=== PATIENT | female | born 2000 | race Caucasian/White ===

== ENCOUNTER 2022-11-01 20:23 | Emergency (ER) | payer OTHER ==
[~2022-11-01] VITALS: Ht 162.6 cm; Wt 47.2 kg
[2022-11-01 20:28] VITALS: BP_SYST 131; PULSE 63; RESP 18; TEMP 97.5; O2SAT 100
[2022-11-01] MEDS ORDERED: KETOROLAC TROMETHAMINE 60 MG/2 ML VIAL IM ONE (23:00)
[2022-11-01] MEDS ORDERED: ACETAMINOPHEN 500 MG TABLET PO ONE (23:00)
[2022-11-02] MEDS ORDERED: CYCL10TA24 PO (00:01)
[2022-11-02] MEDS ORDERED: IBUP-1969 PO (00:01)
[2022-11-02] MEDS ORDERED: ACET-2634 PO (00:01)
[2022-11-02 00:23] VITALS: BP_SYST 125; PULSE 68; RESP 18; TEMP 97.5; O2SAT 100
== END 2022-11-02 00:23 | disposition home or self-care (01) ==
LOC: SED 20:23
DX: M54.2 Cervicalgia (principal); M25.572 Pain in left ankle and joints of left foot; M25.562 Pain in left knee; M79.662 Pain in left lower leg; Z79.899 Other long term (current) drug therapy
CPT/HCPCS: 99284; 73560; 73610; 96372; J1885